=== PATIENT | male | born 1955 | race Caucasian/White ===

== ENCOUNTER → 2018-11-02 | Outpatient (CLI) | payer OTHER ==
[2018-11-02 09:26] LABS: Appearance,Urine Clear (Clear); Bilirubin,Urine Negative (Negative); Blood,Urine Negative (Negative); Color,Urine Yellow; Glucose,Urine (UA) Negative (Negative); Ketones,Urine Negative (Negative); Leukocyte Esterase,Urine Negative (Negative); Nitrite,Urine Negative (Negative); PH, Urine 6.5 (5.0-8.0); Protein,Urine Negative (Negative); Specific Gravity,Urine 1.011 (1.001-1.035); Urobilinogen,Urine <2.0 mg/dL (<2.0)
[2018-11-02 09:29] LABS: Anion Gap 9 mmol/L; Blood Urea Nitrogen 13 mg/dL (9-20); Carbon Dioxide 28 mmol/L (22-30); Chloride 99 mmol/L (98-107); Sodium 136 mmol/L (137-145)
[2018-11-02 09:33] LABS: INR 0.9 (<1.2); Partial Thromboplastin Time 23.9 sec (22.0-30.0)
[2018-11-02 09:37] LABS: HCT 45.6 % (39.0-53.0); HGB 15.2 gm/dL (13.0-17.5); MCH 31.1 pg (25.0-35.0); MCHC 33.4 g/dL (31.0-37.0); MCV 93.1 fL (80.0-100.0); Mean Platelet Volume 6.9; Platelet Count 296 k/uL (150-450); RDW 12.7 % (11.5-15.5); WBC 6.9 k/uL (3.8-10.6)
== END ==
LOC: LABPAT 08:40
PROVIDERS: ATTEND Orthopaedic Surgery
DX: Z01.818 Encounter for other preprocedural examination (principal); Z01.812 Encounter for preprocedural laboratory examination; M16.12 Unilateral primary osteoarthritis, left hip
CPT/HCPCS: 36415; 80051; 81003; 82565; 84520; 85027; 85610; 85730; 87070; 93005

== ENCOUNTER 2018-11-26 05:45 | Inpatient (IN) | payer OTHER ==
[2018-11-19 15:51] VITALS: BMI 31.3
[~2018-11-26 05:45] MED LIST: ACETAMINOPHEN TAB 500 MG TAB PO ONE; HYDROmorphone 0.5 MG/0.5 ML SYRINGE IVP PRN; MELOXICAM 7.5 MG TAB PO ONE; MORPHINE SULFATE 4 MG/ML SYRINGE IV PRN; TRANEXAMIC ACID 1,000 MG in SODIUM CHLORIDE 0.9% 100 ML IVPB ONE; ceFAZolin IN SWFI 2 GM/20 ML SYRINGE IVP ONE
[2018-11-26] MEDS ORDERED: ROPIVACAINE 246.25 MG, EPINEPHrine 0.5 MG, KETOROLAC 30 MG, cloNIDine HCL/PF 80 MCG, WA... MISCELLANE ONE ×5 (05:55)
[2018-11-26] MEDS: LACTATED RINGERS 1,000 ML IV SCH ×2 (06:28→21:48)
[2018-11-26] MEDS ORDERED: LIDOCAINE 1% 20 ML VIAL (10MG/ML) FOR IV START INTRADERMA ONE (06:28)
[2018-11-26 06:31] LABS: Glucose,Whole Blood 183 mg/dL (75-99)
[2018-11-26] MEDS ORDERED: hydrOXYzine PAMOATE 25 MG CAP PO PRN (06:55)
[2018-11-26] MEDS ORDERED: ONDANSETRON 4 MG/2 ML VIAL IVP PRN (06:55)
[2018-11-26] MEDS ORDERED: MAGNESIUM HYDROXIDE 2,400 MG/10 ML CUP PO PRN (06:55)
[2018-11-26] MEDS ORDERED: HYDROcodone/APAP 5-325MG 1 EACH TAB PO PRN (06:55)
[2018-11-26] MEDS ORDERED: HYDROmorphone 0.5 MG/0.5 ML SYRINGE IVP PRN ×2 (06:55)
[2018-11-26] MEDS ORDERED: DIAZEPAM 5 MG TAB PO PRN (06:55)
[2018-11-26] MEDS ORDERED: HYDROmorphone 1 MG/ML 1 ML SYRINGE IVP PRN (06:55)
[2018-11-26] MEDS ORDERED: NALOXONE 0.4 MG/ML 1 ML VIAL IV PRN (06:55)
[2018-11-26] MEDS ORDERED: fentaNYL (PF) 50 MCG/ML 2 ML AMP ONE (06:58)
[2018-11-26] MEDS ORDERED: SODIUM CHLORIDE 0.9% 100 ML BAG ONE (06:58)
[2018-11-26] MEDS ORDERED: MIDAZOLAM 2 MG/2 ML VIAL ONE (06:58)
[2018-11-26] MEDS ORDERED: diphenhydrAMINE 50 MG/ML 1 ML VIAL ONE (06:58)
[2018-11-26] MEDS ORDERED: ePHEDrine SULFATE/0.9% NACL/PF 50 MG/5 ML SYRINGE IV ONE (06:58)
[2018-11-26] MEDS ORDERED: TRANEXAMIC ACID 1,000 MG/10 ML VIAL ONE (06:58)
[2018-11-26] MEDS ORDERED: PROPOFOL 10 MG/ML 20 ML VIAL IV ONE (06:58)
[2018-11-26] MEDS ORDERED: PHENYLEPHRINE-0.9% NACL SYG 1 MG/10 ML SYRINGE ONE (06:58)
[2018-11-26] MEDS ORDERED: ceFAZolin 3,000 MG in SODIUM CHLORIDE 0.9% IRRIGATIO 3,000 ML IRRIGATION ONE (07:44)
--- NOTE | 2018-11-26 08:49 | P.OP ---
Date of Procedure: 11/26/18 Preoperative Diagnosis: Severe osteoarthritis left hip Postoperative Diagnosis: Severe osteoarthritis left hip Procedure(s) Performed: Left total hip arthroplasty with a direct anterior approach Implants: Holloway and nephew Polarstem size 2 standard Holloway [employer] Nephew R3, 3 hole acetabular shell, 52 mm [employer]hew reflection 6.5 mm cancellus screw, 20 mm 2 [employer]hew R3, XLPE 20 acetabular liner [employer]ay [employer] Nephew Oxinium femoral head 36 m, -3 All components were press-fit. The articulation is Oxinium on polyethylene. Anesthesia: spinal Surgeon: Ariel Wagner Innovation Manager #1: Carmen Wiseman Estimated Blood Loss (ml): 500 (200 mL returned with Cell Saver) Pathology: other (Femoral head) Condition: stable Disposition: PACU Indications for Procedure: After failure of conservative treatment we discussed the surgical and nonsurgical treatment options at length. Patient wishes to proceed with a total hip arthroplasty with a direct anterior approach. Complications specific to this procedure were discussed at length, including but not limited to infection, leg length discrepancy, dislocation, and nerve injury. Patient is aware of all these complications and informed consent was obtained Operative Findings: The operative findings are consistent with severe osteoarthritis of the left hip Description of Procedure: Patient was seen and evaluated in the preoperative area, consent was reviewed, and the surgical site was marked with a skin marker. Patient was then brought to the operating room and given prophylactic antibiotics intravenously. 1 g of Tranexamic acid was also given. A spinal anesthetic was administered by the anesthesia department. The patient was then placed on the [place] table with the bony prominences well-padded. The hip area was then prepped and draped in usual sterile fashion. A universal timeout was then performed, which confirmed the patient's name, surgical site, ALLERGIES, and procedure being performed. Next the incision site was located at 1 cm distal and 1 cm lateral to the anterior superior iliac spine. The skin and subcutaneous tissues were sharply incised. Incision was carefully dissected down to the fascia overlying the tensor fascia tan muscle. This fascia was then incised in line with the incision. Next, using blunt finger dissection, the tensor fascia tan muscle was dissected off its investing fascia. The muscle was then carefully retracted laterally with a cobra retractor over the lateral neck of the femur. Next, the circumflex vessels were identified and cauterized using the AquaMantis device. The anterior hip capsule was then exposed. The capsule was then opened and an inverted T fashion. Cobra retractors were then placed intracapsularly. The proximal femur was then vis ualized. The femoral neck was then osteotomized appropriate level above the lesser trochanter. Small amount of traction was placed with the [place] table. A small wedge of bone was then removed from the remaining femoral head. Next, using a corkscrew femoral head was easily removed from the acetabulum. On gross visual inspection, the femoral head had complete loss of articular cartilage in multi ple periarticular osteophytes. Attention was then turned to the acetabulum. the acetabulum was exposed and any remaining labrum was excised. Sequential reaming of the acetabulum was performed using fluoroscopic guidance. When the appropriate size was reached, a trial was then placed. The position and fit of the trial was checked with fluoroscopy. The trial was then removed. Then, using fluoroscopic guidance, the final implant was impacted at 20 of anteversion and 40 of abduction, and fully seated in the acetabulum. 2 screws were then placed in the acetabulum. Again fluoroscopy was used to check position of the screws. Next, the liner was then impacted, with a 20 elevated liner located in the anterior superior quadrant. Component locking was confirmed. Attention was then directed to the femur. With the aid of the [place] table, the femur was externally rotated to approximately 130, extended, and abducted under the opposite leg. A side hook was then placed under the proximal femur, and the side hook elevator was used to elevate the proximal femur. Retractors were then placed. A capsular release was performed, as well as a release of the conjoined tendon, which afforded excellent visualization of the proximal femur. Next, a box osteotome was used to lateralize the proximal femur. A canvas cutter hand was then used to locate the femoral canal. Sequential broaching was then performed with appropriate size which afforded excellent fixation in the proximal femur. A trial was then placed with appropriate head and neck, and the hip was gently reduced with the aid of the [place] table. Fluoroscopy was then used to check position of the components, as well as to ensure equal leg lengths. The hip was then gently dislocated and the trials were then removed. Final implants were then impacted and the hip was again reduced. Final fluoroscopic x-rays confirmed that the components were in anatomic position, as well as equal leg lengths. The hip was also taken through range of motion, and found to be stable. The hip was then copiously irrigated with antibiotic solution with pulsatile lavage. The hip was then irrigated with Irrisept solution. The soft tissues were then injected with a ropivacaine solution, which consisted of 246.25 mg of ropivacaine, 0.5 mg of epinephrine, 30 mg of Toradol, 80 g of clonidine, and 48.45 mL of sterile water, for a total of 100 mL of fluid injected. A second dose of 1 g of Tranexamic acid was also given. the fascia was then closed with 2-0 strata fix suture. The subcutaneous tissue was closed with 3-0 Vicryl. The subcuticular tissue was closed with 3-0 strata fix suture. The skin was then closed with Dermabond glue and a sterile silver dressing. The patient was then transferred to the recovery room in stable condi tion. The chemist assistant NELSY Israel was required due to the complexity of surgery, and the need for skilled ophthalmology surgical technician for positioning, draping, exposure, retraction, and closure of the wound.
--- NOTE | 2018-11-26 08:54 | FL ---
EXAMINATION TYPE: FL guidance operating room, XR Hip Limited LT DATE OF EXAM: 11/26/2018 CLINICAL HISTORY: Left hip replacement. TECHNIQUE: Fluoroscopy. COMPARISON: None. FINDINGS: Fluoroscopic guidance was provided during procedure performed by Dr. Wagner. A total of 35 seconds of fluoroscopic time was utilized during the procedure and 2 spot images was acquired demo nstrating a left hip arthroplasty. IMPRESSION: As Above.
--- NOTE | 2018-11-26 09:26 | XR ---
EXAMINATION TYPE: XR Hip Limited LT DATE OF EXAM: 11/26/2018 CLINICAL HISTORY: Left hip pain and osteoarthritis. TECHNIQUE: Single AP portable view of left hip is obtained immediately postoperatively. COMPARISON: None. FINDINGS: Metallic hardware from left hip arthroplasty is seen and appears satisfactory in alignment and position. There is evidence of recent surgery with subcutaneous gas noted laterally. IMPRESSION: Metallic hardware from left hip arthroplasty is satisfactory in position.
[2018-11-26 09:31] LABS: Glucose,Whole Blood 167 mg/dL (75-99)
[2018-11-26] MEDS: MELOXICAM 7.5 MG TAB PO SCH (12:53)
[2018-11-26] MEDS: ASPIRIN 325 MG TAB PO SCH ×2 (12:53→21:49)
[2018-11-26] MEDS: SODIUM CHLORIDE 0.9% 1,000 ML IV SCH ×2 (12:53→21:55)
[2018-11-26] MEDS: FLUTICASONE 50MCG/SPRAY NASAL 16GM EA NOSTRIL SCH (12:53)
[2018-11-26] MEDS: INSULIN ASPART (NovoLOG) 100 UNIT/ML VIAL SQ SCH ×3 (12:55→21:50)
--- NOTE | 2018-11-26 14:33 | P.CONS ---
History of Present Illness - Reason for Consult Consult date: 11/26/18 management of DM post op Requesting physician: Ariel Wagner - Chief Complaint elective left hip arthroplasty - History of Present Illness 63 year old male with history of DM, HTN, HLD presented for scheduled left FRED. reports long history of left hip pain due to advanced degenerative joint disease, limiting his activity of daily living. patient tolerated procedure well, did not pass urine yet, he worked with PT and was able to have full weight bearing walking with walker, reports minimal pain at this time, he did not pass urine yet. tolerating PO intake. denies any chest pain, or SOB. medicine was consulted for post op management of HTN, and DM. Review of Systems Pertinent positives as noted in HPI. All other systems were reviewed and are negative Past Medical History Past Medical History: Diabetes Mellitus, Hyperlipidemia, Hypertension History of Any Multi-Drug Resistant Organisms: None Reported Additional Past Surgical History / Comment(s): WISDOM TEETH, COLONOSCOPY Past Anesthesia/Blood Transfusion Reactions: No Reported Reaction Smoking Status: Former smoker - Past Family History Mother Family Medical History: No Reported History Medications and Allergies Home Medications Medication Instructions Recorded Confirmed Type Aspirin [Adult Low Dose Aspirin EC] 81 mg PO DAILY 11/19/18 11/26/18 History Fluticasone Nasal [place] [Flonase 1 spray EA NOSTRIL DAILY 11/19/18 11/26/18 History Nasal [place]] Lisinopril-Hctz 20-25 mg 1 tab PO DAILY 11/19/18 11/26/18 History [Zestoretic 20-25] Simvastatin 40 mg PO HS 11/19/18 11/26/18 History metFORMIN HCL [Glucophage] 500 mg PO HS 11/19/18 11/26/18 History traMADol HCL [Ultram] 50 mg PO Q6HR PRN 11/19/18 11/26/18 History Allergies Allergy/AdvReac Type Severity Reaction Status Date / Time No Known Allergies Allergy Verified 11/26/18 14:04 Physical Exam Vitals: Vital Signs Temp Pulse Pulse Resp BP BP Pulse Ox 11/26/18 12:02 84 16 114/70 99 11/26/18 11:33 77 16 114/62 98 11/26/18 11:03 77 16 130/66 100 11/26/18 10:33 82 16 106/58 99 11/26/18 10:02 82 16 104/52 99 03/19/19 09:47 84 16 97/54 100 11/26/18 09:30 87 16 85/48 97 11/26/18 09:15 80 16 101/55 98 11/26/18 09:01 86 16 94/53 99 11/26/18 08:55 97.2 F L 90 16 95/54 99 11/26/18 06:10 97.6 F 81 16 145/80 96 Intake and Output 11/25/18 11/26/18 11/26/18 22:59 06:59 14:59 Intake Total 100 1001 Output Total 500 Balance 100 501 Intake: IV 100 1001 Output: Estimated Blood Loss 500 Constitutional: No acute distress, conversant, pleasant Eyes: Anicteric sclerae, moist conjunctiva, no lid-lag Pupils equal round reactive to light ENMT: NC/AT Oropharynx clear, no erythema, exudates Neck: Supple, FROM, no masses, or JVD No carotid bruits No thyromegaly Lungs: Clear to auscultation Clear to percussion Normal respiratory effort, no accessory muscle use Cardiovascular: Heart regular in rate and rhythm, No murmurs, gallops, or rubs No peripheral edema Abdominal: Soft Nontender, no guarding, rebound or rigidity Abdomen moving with respiration Normoactive bowel sounds No hepatomegaly, No splenomegaly No palpable mass No abdominal wall hernia noted Skin: Normal temperature, tone, texture, turgor No induration No subcutaneous nodules No rash, lesions No ulcers Extremities: No digital cyanosis No clubbing Pedal pulses intact and symmetrical Radial pulses intact and symmetrical No calf tenderness Psychiatric: Alert and oriented to person, place and time Appropriate affect fair judgment Neuro Muscles Strength 5/5 in all 4 extremities (limited exam left LE due to recent surgery and pain ) Sensation to light touch grossly present throughout Cranial nerves II-XII grossly intact No focal sensory deficits Lymphatics: no palpable cervical or supraclavicular , or inguinal lymph nodes Results Labs: Abnormal Lab Results - Last 24 Hours (Table) 11/26/18 11/26/18 Range/Units 06:23 09:05 POC Glucose (mg/dL) 183 H 167 H (75-99) mg/dL Assessment and Plan Assessment: 63-year-old male with history of hypertension hyperlipidemia and diabetes and oral hypoglycemics, presented electively for left hip total arthroplasty due to advanced degenerative joint disease. Medicine consulted for management of diabetes and hypertension postoperatively, patient is doing well tolerated procedure well. We will hold oral hypoglycemic agents continue with insulin sliding scale. Hold lisinopril hydrochlorothiazide on postoperative day 0 and r esume tomorrow. Currently blood pressure is controlled. We'll continue to follow up, check morning labs CBC and renal function Plan: left hip advanced degenerative joint disease s/p FRED POD #0 pain control and DVT ppx per ortho Hypertension , controlled resume home meds in AM , lisinopril - HCTz Diabetes mellitus , on oral hypoglycemic hold metformin , resume upon discharge continue with insuline sliding scale while in patient hyperlipidemia , statin DVT ppx per ortho recs Full code Check AM labs , CBC and renal function bladder scan , patient did not pass urine since came out of surgery >6 hours ago Thank you for allowing us to participate in the care of this patient. Do not hesitate to contact us with questions. Someone can be reached from the [facility] hospitalist group at all hours of the day at [phone].
[2018-11-26] MEDS: HYDROcodone/APAP 5-325MG 1 EACH TAB PO PRN (15:59)
[2018-11-26 17:27] LABS: Glucose,Whole Blood 159 mg/dL (75-99)
[2018-11-26] MEDS: ceFAZolin IN SWFI 2 GM/20 ML SYRINGE IVP SCH ×2 (17:29→23:46)
[2018-11-26 20:25] LABS: Glucose,Whole Blood 178 mg/dL (75-99)
[2018-11-26] MEDS ORDERED: SENNOSIDES-DOCUSATE SODIUM 1 EACH TAB PO SCH (21:00)
[2018-11-26] MEDS ORDERED: ATORVASTATIN 20 MG TAB PO SCH (21:00)
[2018-11-27] MEDS: HYDROcodone/APAP 5-325MG 1 EACH TAB PO PRN ×2 (00:01→07:43)
[2018-11-27 07:16] LABS: Glucose,Whole Blood 204 mg/dL (75-99)
[2018-11-27] MEDS: ASPIRIN 325 MG TAB PO SCH (07:44)
[2018-11-27] MEDS: MELOXICAM 7.5 MG TAB PO SCH (07:44)
[2018-11-27] MEDS: INSULIN ASPART (NovoLOG) 100 UNIT/ML VIAL SQ SCH (07:44)
[2018-11-27] MEDS: FLUTICASONE 50MCG/SPRAY NASAL 16GM EA NOSTRIL SCH (07:46)
[2018-11-27] MEDS ORDERED: traMADol 50 MG TAB PO PRN ×2 (08:38)
[2018-11-27 08:44] LABS: Basophils % (A) 0 %; Eosinophils # (A) 0.2 k/uL (0-0.7); Eosinophils % (A) 2 %; HCT 40.8 % (39.0-53.0); HGB 13.2 gm/dL (13.0-17.5); Lymphocytes # (A) 1.8 k/uL (1.0-4.8); Lymphocytes % (A) 19 %; MCH 30.2 pg (25.0-35.0); MCHC 32.4 g/dL (31.0-37.0); MCV 93.1 fL (80.0-100.0); Mean Platelet Volume 6.8; Monocytes # (A) 0.7 k/uL (0-1.0); Monocytes % (A) 7 %; Neutrophils # (A) 6.7 k/uL (1.3-7.7); Neutrophils % (A) 71 %; Platelet Count 250 k/uL (150-450); RBC 4.38 m/uL (4.30-5.90); RDW 12.6 % (11.5-15.5); WBC 9.5 k/uL (3.8-10.6)
[2018-11-27 08:48] VITALS: BP 114/73; PULSE 84; RESP 12; TEMP 98.6
[2018-11-27] MEDS ORDERED: NON-FORMULARY DRUG (Aspirin [Adult Low Dose Aspirin Ec] 81 MG) PO SCH (09:00)
[2018-11-27] MEDS ORDERED: LISINOPRIL-HCTZ 20-25 MG 1 EACH TAB PO SCH (09:00)
[2018-11-27 09:10] LABS: Anion Gap 8 mmol/L; Blood Urea Nitrogen 19 mg/dL (9-20); Calcium 8.8 mg/dL (8.4-10.2); Carbon Dioxide 26 mmol/L (22-30); Chloride 98 mmol/L (98-107); Glucose 180 mg/dL (74-99); Potassium 4.7 mmol/L (3.5-5.1); Sodium 132 mmol/L (137-145)
--- NOTE | 2018-11-27 09:14 | P.DS ---
Providers Date of admission: 11/26/18 05:45 Expected date of discharge: 11/27/18 Attending physician: Ariel Wagner Consults: 11/26/18 06:55 Consult Physician Routine Consulting Provider: Jameel Mora Consult Reason/Comments: medical management Do you want consulting provider notified?: Yes 11/26/18 12:08 Consult Physician Routine Consulting Provider: Terry Brock Consult Reason/Comments: medical mangmenet Do you want consulting provider notified?: Yes Primary care physician: Roosevelt Fink - Discharge Diagnosis(es) (1) Osteoarthritis of left hip Current Visit: Yes Status: Acute (2) S/P total hip arthroplasty Current Visit: Yes Status: Acute Hospital Course: This is a 63-year-old male with known history of degenerative arthritis of the left hip. The patient presents for evaluation. After discussion and consideration patient elects to proceed with total hip arthroplasty. The patient is seen preoperatively by Dr. Wagner and medically cleared for surgery by their primary care physician. Patient is admitted to [facility] on 11/26/2018 for total hip arthroplasty. The procedures performed without complication or sequelae. The patient is doing well postoperatively. Labs and vital signs are stable on day of discharge. On day of discharge patient's hip incision is healing well. There is minimal erythema. There is no drainage noted at this time. There is minimal soft tissue swelling to the hip and thigh. Patient has full foot and ankle motion without difficulty or pain. Calf is soft and nontender to palpation. Neurovascular status to the left lower extremity is intact. Patient is discharged home in good condition. Opioid start talking form is reviewed and signed at patient bedside. Patient states that he has a script for Tramadol at home and wishes to take this for pain. Patient states that he also has a script for a stool softener at home to take along with Tramadol. Please see med rec for accurate list of home medications. Plan - Discharge Summary Discharge Rx Participant: No New Discharge Prescriptions: New Aspirin 325 mg PO BID #60 tab No Action traMADol HCL [Ultram] 50 mg PO Q6HR PRN PRN Reason: Pain Fluticasone Nasal [place] [Flonase Nasal [place]] 1 spray EA NOSTRIL DAILY Lisinopril-Hctz 20-25 mg [Zestoretic 20-25] 1 tab PO DAILY metFORMIN HCL [Glucophage] 500 mg PO HS Simvastatin 40 mg PO HS Aspirin [Adult Low Dose Aspirin EC] 81 mg PO DAILY Discharge Medication List Aspirin [Adult Low Dose Aspirin EC] 81 mg PO DAILY 11/19/18 [History] Fluticasone Nasal [place] [Flonase Nasal [place]] 1 spray EA NOSTRIL DAILY 11/19/18 [History] Lisinopril-Hctz 20-25 mg [Zestoretic 20-25] 1 tab PO DAILY 11/19/18 [History] Simvastatin 40 mg PO HS 11/19/18 [History] metFORMIN HCL [Glucophage] 500 mg PO HS 11/19/18 [History] traMADol HCL [Ultram] 50 mg PO Q6HR PRN 11/19/18 [History] Aspirin 325 mg PO BID #60 tab 11/27/18 [Rx] Follow up Appointment(s)/Referral(s): Ariel Wagner DO [Doctor of Osteopathic Medicine] - 2 Weeks Ambulatory/Diagnostic Orders: Ambulatory Physical Therapy Order [THER.AMB] Location: None Selected Activity/Diet/Wound Care/Special Instructions: Weightbearing as tolerated with walker. Leave dressing intact. Dressing may be removed by home care nurse or by patient in 10 days. May shower with dressing on. Please follow-up with [facility] in 2 weeks and call with any questions or concerns, . Discharge Disposition: HOME WITH HOME HEALTH SERVICES
--- NOTE | 2018-11-27 11:22 | P.PN ---
Subjective Progress Note Date: 11/27/18 Principal diagnosis: hip pain Patient is a 63-year-old male with a past medical history of diabetes mellitus type 2 on orals, hypertension, and dyslipidemia who presented with an elective total hip arthroplasty. He tolerated procedure well without any immediate postoperative complications. His diabetes has been well-controlled. Patient seen and examined at bedside. His hip pain is slightly increased today compared to yesterday. Denies any nausea, vomiting, shortness of breath, or chest pain. He has already been up and walking with physical therapy is excited to go home. We discussed the fact that his sodium level is slightly low today at 132 this is likely postoperative changes with IV fluids use during a. I've asked him to get a repeat basic metabolic profile with his PCP Dr. akbar on approximately one week. I have given him a prescription for this. We discussed resuming his metformin today when he goes home and monitoring his blood sugars. I instructed him that his sugars will likely be slightly elevated for the next 3-5 days secondary to the stress of surgery. If he has blood sugars consistently elevated above 300 he is to call his PCP immediately for further instructions. Objective - Vital Signs Vital signs: Vital Signs Temp 98.6 F 11/27/18 07:00 Pulse 84 11/27/18 07:00 Resp 12 11/27/18 07:00 BP 114/73 11/27/18 07:00 Pulse Ox 96 11/27/18 07:00 Intake & Output 11/26/18 11/27/18 11/27/18 18:59 06:59 18:59 Intake Total 1201 280 Output Total 500 Balance 701 280 Intake: IV 1001 Intake, IV Titration 280 Amount Sodium Chloride 0.9% 1, 280 000 ml @ 70 mls/hr IV . [id number] FREDY Rx#:[id number] Oral 200 Output: Estimated Blood Loss 500 Other: # Voids 1 - Exam General: non toxic, no distress, appears at stated age Derm: warm, dry Head: atraumatic, normocephalic, symmetric Eyes: EOMI, no lid lag, anicteric sclera Cardiovascular: S1S2 reg, no murmur, positive posterior tibial pulse bilateral, Lungs: CTA bilateral, no rhonchi, no rales , no accessory muscle use Ext: no gross muscle atrophy, no edema, no contractures Neuro: CN II-XI grossly intact, no focal neuro deficits Psych: Alert, oriented, appropriate affect - Labs CBC & Chem 7: 11/27/18 07:06 11/27/18 07:06 Labs: Abnormal Lab Results - Last 24 Hours (Table) 11/26/18 11/26/18 11/27/18 Range/Units 17:26 20:23 07:06 Sodium 132 L (137-145) mmol/L Glucose 180 H (74-99) mg/dL POC Glucose (mg/dL) 159 H 178 H (75-99) mg/dL 11/27/18 Range/Units 07:14 Sodium (137-145) mmol/L Glucose (74-99) mg/dL POC Glucose (mg/dL) 204 H (75-99) mg/dL Assessment and Plan Assessment: Patient is a 63 yo CM POD # 1 s/p L FRED, direct anterior DM 2 with hyperglcyemia - due to stress of surgery - resume metformin - call PCP immediatly if greater than 300 Hyponatremia, acute on chronic - repeat in 1 week, given order - continue HCTZ/lisinopril for now but if worsens may need to come off HCTZ HTN controlled - continue lisinopril/hctz HLD - continue statin arthritis s/p FRED - on ASA as DVT prophylaxis - Pepcid as GI prophylaxis until completes ASA therapy. Medically stable for discharge. Thank you for allowing us to participate in the care of the arjun garibay.
== END 2018-11-27 10:46 | disposition home health service (06) | DRG 470 ==
LOC: 2ORMAIN 05:45 → 4SSUR 12:04
PROVIDERS: ADMIT Orthopaedic Surgery; ATTEND Orthopaedic Surgery
PROC: 0SRB06A Replacement of Left Hip Joint with Oxidized Zirconium on Polyethylene Synthetic Substitute, Uncemented, Open Approach (ICD-10-PCS; 2018-11-26)
PROC: 30233N0 Transfusion of Autologous Red Blood Cells into Peripheral Vein, Percutaneous Approach (ICD-10-PCS; principal; 2018-11-26 07:00)
DX: M16.12 Unilateral primary osteoarthritis, left hip (principal); E87.1 Hypo-osmolality and hyponatremia; E11.65 Type 2 diabetes mellitus with hyperglycemia; E78.5 Hyperlipidemia, unspecified; I10 Essential (primary) hypertension; E11.9 Type 2 diabetes mellitus without complications; Z79.82 Long term (current) use of aspirin; Z79.84 Long term (current) use of oral hypoglycemic drugs; Z79.899 Other long term (current) drug therapy; Z87.891 Personal history of nicotine dependence
CPT/HCPCS: 36415; 73501; 80048; 85025; 86850; 86900; 86901; 88300